=== PATIENT | male | born 1990 | race Caucasian/White ===

== ENCOUNTER 2020-01-31 13:42 | Emergency (ER) | payer OTHER ==
[~2020-01-31] VITALS: Ht 177.8 cm; Wt 79.0 kg
[2020-01-31] MEDS ORDERED: IBUPROFEN 400 MG TABLET PO ONE (14:30)
[2020-01-31 14:45] VITALS: BP 122/79
== END 2020-01-31 14:52 | disposition home or self-care (01) ==
LOC: EMS 13:45
DX: S00.532A Contusion of oral cavity, initial encounter (principal); Y04.0XXA Assault by unarmed brawl or fight, initial encounter; Y93.89 Activity, other specified; Y92.89 Other specified places as the place of occurrence of the external cause; Y99.8 Other external cause status